=== PATIENT | female | born 1950 | race Caucasian/White ===

== ENCOUNTER 2017-03-26 22:37 | Observation (INO) | payer MEDICARE ==
[2017-03-26 23:22] LABS: ALKALINE PHOSPHATASE 116 U/L (38-126); ALT 54 U/L (9-52); AST 35 U/L (14-36); BILIRUBIN, DIRECT 0.1 mg/dL (0.0-0.4); BLOOD UREA NITROGEN 8 mg/dL (7-17); CALCIUM 7.6 mg/dL (8.4-10.2); CHLORIDE 98 mmol/L (98-107); EST GLOMERULAR FILTRATION RATE > 60 mL/min; GLUCOSE 97 mg/dL (70-100); POTASSIUM 3.1 mmol/L (3.5-5.1); SODIUM 134 mmol/L (137-145); TOTAL PROTEIN 5.7 g/dL (6.3-8.2)
[2017-03-26 23:31] LABS: HEMATOCRIT 38.2 % (36.0-48.0); HEMOGLOBIN 12.8 g/dL (12.0-16.0); MEAN CELL VOLUME 86.8 fL (80.0-100.0); MEAN CORPUS. HGB CONCENTRATION 33.5 g/dL (32.0-36.0); MEAN CORPUSCULAR HEMOGLOBIN 29.1 pg (29.0-35.0); MEAN PLATELET VOLUME 7.2 fL (7.4-10.4); PLATELET COUNT 201 X 10^3uL (130-440); RED CELL DISTRIBUTION WIDTH 18.9 % (11.5-14.5); WHITE BLOOD COUNT 13.7 X 10^3uL (3.9-10.7)
[2017-03-26 23:42] LABS: NEUTROPHIL % (Manual) 37 % (54.0-75.0)
[2017-03-26 23:43] LABS: BAND% (Manual) 43 % (0.0-1.0); LYMPHOCYTE % (Manual) 10 % (20.0-40.0); MONOCYTE % (Manual) 10 % (2.0-10.0); PLATELET ESTIMATE ADEQUATE
[2017-03-26] MEDS ORDERED: POLYETHYLENE GLYCOL 3350 17 GM POWD.PACK PO PRN (23:45)
[2017-03-26] MEDS ORDERED: ACETAMINOPHEN 325 MG TABLET PO PRN (23:45)
[2017-03-26] MEDS ORDERED: MAG-AL PLUS XS SUSP 30 ML UDC PO PRN (23:45)
[2017-03-26] MEDS ORDERED: POTASSIUM CHLORIDE/NS 1,000 ML IV SCH (23:45)
[2017-03-26] MEDS ORDERED: HOME MEDICATION LIST NEEDED 1 EA EACH MISC ONE (23:45)
[2017-03-26 23:47] LABS: ACANTHOCYTES PRESENT; TEAR DROP CELLS PRESENT
--- NOTE | 2017-03-27 01:15 | ER PHYSICIAN DOCUMENTATION ---
Physician Documentation [facility] Name:Ginger Gannon Age:66 yrs Sex:Female :1950 Arrival Date:03/26/2017 Time:22:37 Bed3 Private MD:Dina Guevara ED, Chris Disposition: 03/27/17 01:00 Admit ordered for Marlene Arreola. Preliminary diagnosis are Vomiting - Dehydration, Sepsis - : Rule out. - Bed requested for Medical/Surgical. - Condition is Fair. - Problem is an ongoing problem. - Symptoms have improved. 23 HR OBS Yes HPI: 03/26 23:00 This 66 yrs old Female presents to ER via Wheelchair with complaints of cd Nausea/Vomiting/ Dehydration. 23:00 The patient presents to the emergency department with nausea, that is moderate, with cd vomiting, that is occasional, 4 times since the onset of symptoms, described as clear fluid, without any complaints of abdominal pain, with Patient reports feeling dehydrated. She is currently receiving Chemotherapy for Stomach Cancer. Last week she had a shot of Neupogen. Her WBC was 1,600 last week. She denies fever or chills. Onset: The symptom(s)/episode began/occurred acutely, 4 day(s) ago. Possible causes: Chemotherapy. Associated signs and symptoms: Pertinent positives: anorexia, nausea, vomiting, Pertinent negatives: abdominal pain, diarrhea, dysuria, fever, GI bleeding. Severity of symptoms: At their worst the symptoms were moderate in the emergency department the symptoms are unchanged. The patient has experienced similar episodes in the past. Dr. Jairo Arreola here to evaluate the patient. Historical: - Allergies: No known drug Allergies; - PMHx: Stomach Cancer undergoing Chemotherapy; Neutropenia in the past; - Tetanus: < 10 years. - Ebola Screening: : Patient negative for fever greater than or equal to 101.5 degrees Fahrenheit, and additional compatible Ebola Virus Disease symptoms. Patient denies exposure to infectious person. Patient denies travel to an Ebola-affected area in the 21 days before illness onset. No symptoms or risks identified at this time. . - Immunization history: Flu Vaccine < 1 year. - Social history: Smoking status: Patient states was never smoker of tobacco. ROS: 23:05 ENT: Negative for injury, pain, epistaxis and discharge. cd Neck: Negative for injury, pain, stiffness and swelling. Cardiovascular: Negative for chest pain, palpitations, edema and pleuritic pain. Respiratory: Negative for shortness of breath, dyspnea on exertion, cough, sputum production, wheezing, hemoptysis and pleuritic chest pain. Back: Negative for injury, pain or muscle spasms. : Negative for injury, bleeding, discharge, dysuria, frequency, urgency and swelling. MS/Extremity: Negative for injury, deformity, edema, calf tenderness, pain or coldness. Skin: Negative for injury, rash, itching and discoloration. 23:05 Neuro: Negative for headache, weakness, numbness, tingling, and seizure. cd 23:05 Constitutional: Positive for malaise, poor PO intake, Negative for chills, fever. 23:05 Abdomen/GI: Positive for nausea, vomiting, anorexia, Negative for abdominal pain, diarrhea, abdominal distension, hematemesis, black/tarry stool, rectal bleeding. 23:05 All other systems are negative. Exam: 23:05 ENT: Nares patent. No nasal discharge, no septal abnormalities noted. Tympanic cd membranes are normal and external auditory canals are clear. Oropharynx with no redness, swelling, or masses, exudates, or evidence of obstruction, uvula midline. Mucous membranes dry Back: No spinal tenderness. No costovertebral tenderness. Full range of motion. MS/ Extremity: Pulses equal, no cyanosis. Neurovascular intact. Full, normal range of motion. 23:05 Neuro: Awake and alert, GCS 15, oriented to person, place, time, and situation. Cranial nerves II-XII grossly intact. Motor strength 5/5 in all extremities. Sensory grossly intact. Cerebellar exam normal. Normal gait. 23:05 Constitutional: The patient appears alert, awake, non-diaphoretic, non-toxic, well developed, frail, listless, pale. 23:05 Cardiovascular: Rate: tachycardic, actual rate is 116 bpm, Rhythm: regular, Pulses: no pulse deficits are appreciated, Heart sounds: normal. 23:05 Respiratory: Exam negative for acute changes. 23:05 Abdomen/GI: Inspection: abdomen appears normal, distension, is not seen, Bowel sounds: diminished, Palpation: soft, rebound tenderness, is not appreciated, voluntary guarding, is not appreciated, involuntary guarding, is not appreciated, no appreciated organomegaly. 23:05 Skin: Appearance: Color: pale. Vital Signs: 22:41 BP 132 / 88 RA Sitting (auto/reg); Pulse 116 LA; Resp 14 S; Temp 98.8(O); Pulse Ox 93% em3 on R/A; Weight 49.9 kg (R); Height 5 ft. 3 in. (160.02 cm) (R); Pain 0/10; 22:41 Body Mass Index 19.49 (49.90 kg, 160.02 cm) em3 [place] Coma Score: 23:05 Eye Response: spontaneous(4). Verbal Response: oriented(5). Motor Response: obeys cd commands(6). Total: 15. MDM: 23:05 Data interpreted: Pulse oximetry: on room air is 93 %. Interpretation: normal. cd 23:15 Patient medically screened. cd 23:15 Differential diagnosis: gastritis, pancreatitis, viral gastroenteritis, cd gastroenteritis, Dehydration, Neutropenic fever. 23:45 Data reviewed: vital signs, nurses notes, old medical records, lab test result(s), and cd as a result, I will admit patient, administer IV fluids, NS bolus, NS maintenence, Zofran and get a consult from Medicine for admission. 03/27 01:00 Counseling: I had a detailed discussion with the patient and/or guardian regarding: the cd historical points, exam findings, and any diagnostic results supporting the discharge/admit diagnosis, lab results, the need for further work-up and treatment in the hospital. Response to treatment: the patient's symptoms have mildly improved after treatment, and as a result, I will admit patient. Physician consultation: Marlene Arreola DO was called at 23:20, was contacted at 23:20, regarding admission, to the floor, consult, patient's condition, need to come to ED to see patient, need to evaluate the patient as soon as possible, and will see patient in ED, immediately. 03/26 23:30 Order name: BASIC METABOLIC PANEL; Complete Time: 00:50 EDMS 03/27 00:49 Interpretation: Normal Except: POTASSIUM 3.1; Hyperglycemia, Hypokalemia. 03/26 23:30 Order name: ALT; Complete Time: 00:50 EDMS 03/27 00:49 Interpretation: Normal. 03/26 23:30 Order name: ALBUMIN; Complete Time: 00:50 EDMS 03/27 00:49 Interpretation: Abnormal: ALBUMIN 3.0. 03/26 23:30 Order name: ALKALINE PHOSPHATASE; Complete Time: 00:50 EDMS 03/27 00:49 Interpretation: Normal. 03/26 23:30 Order name: AST; Complete Time: 00:50 EDMS 03/27 00:49 Interpretation: Normal. 03/26 23:30 Order name: BILIRUBIN, TOTAL; Complete Time: 00:50 EDMS 03/27 00:50 Interpretation: Normal. 03/26 23:30 Order name: BILIRUBIN, DIRECT; Complete Time: 00:50 EDMS 03/27 00:50 Interpretation: Normal. 03/26 23:30 Order name: TOTAL PROTEIN; Complete Time: 00:50 EDMS 03/27 00:50 Interpretation: Abnormal: TOTAL PROTEIN 5.7. 03/26 23:32 Order name: CBC W/ MANUAL DIFFERENTIAL; Complete Time: 00:50 EDMS 03/27 00:50 Interpretation: Abnormal: WHITE BLOOD COUNT 13.7; NEUTROPHIL % (Manual) 37; BAND% cd (Manual) 43. 03/27 06:04 Order name: UA W/ MICRO -CULTURE IF IND; Complete Time: 08:49 EDMS 03/27 08:48 Interpretation: Normal Except: URINE KETONE 50mg/dL (2+); Dehydration. 03/27 07:20 Order name: CBC W/ MANUAL DIFFERENTIAL; Complete Time: 08:49 EDMS 03/27 08:49 Interpretation: Abnormal: WHITE BLOOD COUNT 14.6; HEMOGLOBIN 11.4; HEMATOCRIT 33.4; cd NEUTROPHIL % (Manual) 39; BAND% (Manual) 41; Anemia, Elevated WBC with left shift. 03/27 07:22 Order name: BASIC METABOLIC PANEL; Complete Time: 08:49 EDMS 03/27 08:49 Interpretation: Normal Except: POTASSIUM 3.2; Hyperkalemia. 03/27 07:34 Order name: HEPATIC PANEL; Complete Time: 08:49 EDMS 03/27 08:49 Interpretation: Normal Except: ALBUMIN 3.1. 03/27 16:58 Order name: BASIC METABOLIC PANEL EDMD 03/28 06:23 Order name: BASIC METABOLIC PANEL [facility] 03/28 06:23 Order name: MAGNESIUM EDMD 03/28 06:23 Order name: HEPATIC PANEL [facility] 03/28 06:35 Order name: CBC W/ MANUAL DIFFERENTIAL EDMS 03/28 08:15 Order name: URINE CULTURE EDMS 03/28 08:18 Order name: BLOOD CULTURE EDMS 03/28 08:19 Order name: BLOOD CULTURE EDMS Dispensed Medications: 03/26 23:00 CANCELLED (Other Intervention Used): Zofran 2 mg IVP once over 2 mins bw2 23:01 Drug: NS 0.9% 1000 ml; Route: IV; Rate: bolus; Site: right subclavian; bw2 23:01 Drug: Zofran 4 mg; Route: IVP; Infused Over: 2 mins; Site: right subclavian; bw2 Signatures: Toney Merritt MD MD cd Wisely, Beth bw2
--- NOTE | 2017-03-27 01:15 | ER NURSING DOCUMENTATION ---
Nurse's Notes [facility] Name:Ginger Gannon Age:66 yrs Sex:Female :1950 Arrival Date:03/26/2017 Time:22:37 Bed3 Private MD:Dina Guevara Diagnosis:Vomiting - Dehydration;Sepsis-: Rule out Presentation: 03/26 22:41 Presenting complaint: Patient states: she is undergoing cancer treatment for stomach bw2 cancer. pt states she has been vomiting once every day for the last 4 days. pt states she has increased nausea. Transition of care: patient was not received from another setting of care. 22:41 Acuity: KARL 3 bw2 22:41 Method Of Arrival: Wheelchair bw2 Triage Assessment: 22:45 General: Appears emaciated, malnourished, slender, Behavior is appropriate for age. bw2 Pain: Denies pain. GI: Reports nausea, vomiting, since 4 days. Historical: - Allergies: No known drug Allergies; - PMHx: Stomach Cancer undergoing Chemotherapy; Neutropenia in the past; - Tetanus: < 10 years. - Ebola Screening: : Patient negative for fever greater than or equal to 101.5 degrees Fahrenheit, and additional compatible Ebola Virus Disease symptoms. Patient denies exposure to infectious person. Patient denies travel to an Ebola-affected area in the 21 days before illness onset. No symptoms or risks identified at this time. . - Immunization history: Flu Vaccine < 1 year. - Social history: Smoking status: Patient states was never smoker of tobacco. Screenin:46 Infectious Disease Risk None. Abuse screen: Denies threats or abuse. Nutritional bw2 screening: No deficits noted. Assessment: 22:46 See Triage Assessment done by same RN. GI: No deficits noted. Abdomen is flat, Reports bw2 nausea. Vital Signs: 22:41 BP 132 / 88 RA Sitting (auto/reg); Pulse 116 LA; Resp 14 S; Temp 98.8(O); Pulse Ox 93% em3 on R/A; Weight 49.9 kg (R); Height 5 ft. 3 in. (160.02 cm) (R); Pain 0/10; 22:41 Body Mass Index 19.49 (49.90 kg, 160.02 cm) em3 Daisy Coma Score: 23:05 Eye Response: spontaneous(4). Verbal Response: oriented(5). Motor Response: obeys cd commands(6). Total: 15. ED Course: 22:41 Patient arrived in ED. em3 22:41 Priscilla Leiva is Primary Nurse. bw2 22:41 Dina Guevara MD is Private Physician. em3 22:42 Valuables Remains with patient Patient has correct armband on for positive em3 identification. Placed in gown. Bed in low position. Call light in reach. Side rails up X 1. 22:44 Triage completed. bw2 22:58 Accessed Port-a-Cath using accessed w/ # 20 Pop needle, sterile technique, per [facility] protocol. Clean & dry. Flushes easily. 23:15 Toney Merritt MD is Attending Physician. cd 03/27 00:59 Marlene Arreola DO is Admitting Physician. cd Administered Medications: 03/26 23:00 CANCELLED (Other Intervention Used): Zofran 2 mg IVP once over 2 mins bw2 23:01 Drug: NS 0.9% 1000 ml; Route: IV; Rate: bolus; Site: right subclavian; bw2 23:01 Drug: Zofran 4 mg; Route: IVP; Infused Over: 2 mins; Site: right subclavian; bw2 Outcome: 03/27 01:00 Decision to Admit by Provider. cd 01:12 Admitted to Med/surg accompanied by nurse. bw2 01:12 Condition: good 01:12 Report given to Kb BARROS. Kb notified that a UA is needed, this nurse unable to obtain at this time 01:12 Discharge Assessment: Patient awake, alert and oriented x 3. No cognitive and/or functional deficits noted. Patient verbalized understanding of disposition instructions. 01:12 Instructed on need to admit 01:15 Patient left the ED. bw2 Signatures: Duane Samuels RN RN Toney Merritt MD MD cd Norman, David dnn Meiklejohn, Eric em3 Priscilla Leiva bw2
[2017-03-27] MEDS ORDERED: POTASSIUM CHLORIDE/NS 20 MEQ/1,000 ML BAG IV ONE (01:51)
[2017-03-27] MEDS ORDERED: POTASSIUM CHLORIDE 20 MEQ/100 ML PIGGYBACK IV ONE ×4 (01:51→17:07)
[2017-03-27] MEDS ORDERED: NORMAL SALINE 100 ML IV ONE (01:53)
[2017-03-27] MEDS: POTASSIUM CHLORIDE/NS 20 MEQ/1,000 ML BAG IV SCH ×2 (01:59→20:43)
[2017-03-27 06:03] LABS: URINE APPEARANCE CLEAR; URINE BACTERIA NONE SEEN (<10/hpf); URINE BILIRUBIN NEGATIVE (NEGATIVE); URINE BLOOD NEGATIVE (NEGATIVE); URINE COLOR YELLOW; URINE GLUCOSE NORMAL (NEGATIVE); URINE KETONE 50mg/dL (2+) (NEGATIVE); URINE LEUKOCYTE ESTERASE NEGATIVE (NEGATIVE); URINE MUCUS NONE SEEN (Up to 25%); URINE NITRITE NEGATIVE (NEGATIVE); URINE PH 7.5 (5-7); URINE PROTEIN 10mg/dL (trace) (NEG - TRACE); URINE RBC NONE SEEN (0-5/hpf); URINE SPECIFIC GRAVITY 1.015 (0.001-1.035); URINE SQUAMOUS EPITHELIAL CELL NONE SEEN (<= 15/hpf); URINE UROBILINOGEN 0.2mg/dL (Normal) (NEG-1mg/dL); URINE WBC NONE SEEN (0-4/hpf)
[2017-03-27] MEDS ORDERED: PANTOPRAZOLE 40 MG TABLET PO SCH (06:30)
[2017-03-27 07:12] LABS: BLOOD UREA NITROGEN 6 mg/dL (7-17); CHLORIDE 105 mmol/L (98-107); EST GLOMERULAR FILTRATION RATE > 60 mL/min; GLUCOSE 79 mg/dL (70-100); POTASSIUM 3.2 mmol/L (3.5-5.1); SODIUM 136 mmol/L (137-145)
[2017-03-27 07:19] LABS: HEMATOCRIT 33.4 % (36.0-48.0); HEMOGLOBIN 11.4 g/dL (12.0-16.0); MEAN CELL VOLUME 87.8 fL (80.0-100.0); MEAN CORPUSCULAR HEMOGLOBIN 29.9 pg (29.0-35.0); MEAN PLATELET VOLUME 7.4 fL (7.4-10.4); PLATELET COUNT 177 X 10^3uL (130-440); RED BLOOD COUNT 3.81 X 10^6uL (4.20-6.10); RED CELL DISTRIBUTION WIDTH 19.1 % (11.5-14.5); WHITE BLOOD COUNT 14.6 X 10^3uL (3.9-10.7)
[2017-03-27 07:20] LABS: BAND% (Manual) 41 % (0.0-1.0); LYMPHOCYTE % (Manual) 10 % (20.0-40.0); NEUTROPHIL % (Manual) 39 % (54.0-75.0); PLATELET ESTIMATE ADEQUATE
[2017-03-27 07:21] LABS: MONOCYTE % (Manual) 10 % (2.0-10.0)
[2017-03-27 07:22] LABS: CALCIUM 6.7 mg/dL (8.4-10.2)
[2017-03-27 07:33] LABS: ALBUMIN 3.1 g/dL (3.5-5.0); BILIRUBIN, TOTAL 1.1 mg/dL (0.2-1.3); TOTAL PROTEIN 6.2 g/dL (6.3-8.2)
--- NOTE | 2017-03-27 08:14 | HISTORY & PHYSICAL ---
DATE OF ADMISSION: 03/27/17 ATTENDING PHYSICIAN: Marlene Arreola MD PRIMARY CARE PHYSICIAN: Linnette Guevara MD ONCOLOGIST: Lamar Garcia MD ([employer]) CHIEF COMPLAINT: Nausea and weakness. HISTORY OF PRESENT ILLNESS: The patient is a 66-year-old female who is currently undergoing treatment for metastatic breast cancer. She recently was diagnosed with metastasis to the stomach and weeks ago she had surgery in January. She had a follow up Oncology visit on March 07 and was doing chemotherapy. She has also had a recent consultation at [facility] about 3 weeks ago regarding her cancer treatment and plan of care. As the Emergency Room was very busy, I was asked to evaluate patient in the Emergency Room and consultation and during that consultation, I recommended that she actually come in for further observation. Patient states that she did have chemotherapy on Monday, and since then she has felt more down than typical. On Monday, she came in for her Neupogen shot and had been overall stable. Today, however, her symptoms just continued to progress. She has had increased anxiety. She has had overall fatigue and weakness, sensation that something is wrong and she has had some vomiting. notes that she does typically have about 1 episode a vomiting daily, which she has had since she received chemotherapy just recently. Patient denies any fever. She is slightly chilled. She has mild GI upset and nausea but no diarrhea. She denies any cough or shortness of breath. She denies any urinary symptoms. She denies any rashes or skin abnormalities. PAST MEDICAL HISTORY 1. Breast cancer of upper outer quadrant and left breast with metastatic disease , bone, liver and gastric outlet obstruction. 2. Malnutrition 3. Cyclic vomiting syndrome. 4. Hypokalemia. 5. Hypomagnesia. 6. Gastroesophageal reflux disease. 7. Hypothyroidism. 8. Post polio. PAST SURGICAL HISTORY 1. Status post gastrojejunostomy 02/05/17. 2. Status post RK left eye. 3. Status post open reduction, internal fixation left wrist. 4. Status post multiple lower extremity procedures secondary to polio. FAMILY HISTORY: Mother with history of congestive heart failure, hypertension, diabetes, at age 72. Father at 92 related to congestive heart failure. Brother at age 21 related to lymphoma. SOCIAL HISTORY: Patient is . Her Mckinley was here with her reta. They are originally from [place] and currently running one of the lodges here in [facility]. MEDICATIONS Synthroid, which she alternates with 15 mcg and 75 mcg every other day. Calcium 3 times a day. Zofran and Prochlorperazine as needed. Omeprazole every morning. ALLERGIES: No known drug allergies. REVIEW OF SYSTEMS GENERAL: Patient is fatigued and weak. She denies any fever. No chills. HEENT: No sore throat. No visual changes. No runny nose. RESPIRATORY: Denies cough and shortness of breath. CARDIOVASCULAR: No palpitations. No chest pain. ABDOMEN: Positive for nausea and vomiting. Positive for some mild generalized abdominal discomfort. No diarrhea. EXTREMITIES: No change in chronic edema and abnormalities. PSYCHIATRIC: Patient admits that she has been slightly more anxious. PHYSICAL EXAMINATION VITAL SIGNS: Initially patient with a temperature of 98.8, blood pressure 132/88 , pulse 116, respiratory rate 14 and she was 93% on room air. Her heart rate significantly improved after getting a liter of fluid and resting in the bed. GENERAL: Patient appears slightly anxious and pale but in no acute distress. HEENT: Normocephalic, atraumatic. Mildly dry mucous membranes. She is thin appearing. Oropharynx is clear otherwise. CARDIOVASCULAR: Normal S1, S2. RESPIRATORY: Clear to auscultation bilaterally. No increased respiratory distress. ABDOMEN: Soft, nondistended. Mildly hyperactive bowel sounds. She does have surgical scar on anterior abdomen that is well healed and approximated. EXTREMITIES: Surgical changes left lower extremity related to polio. SKIN: No rashes. She does have port on right anterior chest. NEURO: Patient is alert and oriented x3. Cranial nerves are grossly intact. LABORATORY: Patient has a CBC which showed an elevated white count at 13.7, hemoglobin 12.8, hematocrit 38.2, platelets 201. BMP showed sodium 134, potassium 3.1, chloride 98, bicarb 24, BUN 8, creatinine 0.7 and glucose of 98. Her calcium is low at 7.6 but patient does have chronic hypocalcemia. Her AST is 35, ALT 54, alkaline phosphatase 116. Total protein 5.7, albumin is 3. I did order a urine and culture and blood cultures as well as chest x-ray which are all pending. ASSESSMENT/PLAN: This is a 66-year-old female who is currently undergoing chemotherapy related to metastatic breast cancer who is presenting with progressive fatigue, weakness and increased vomiting causing dehydration. 1. Dehydration. Patient has been having minimal oral intake since her last chemotherapy. was planning on bringing her in tomorrow for some IV fluids but due to her progressive symptoms he brought her in tonight for monitoring. She was noted to have her baseline lab abnormalities, so she will try to replete with appropriate hydration, but she is also noted to have a new elevated white blood count. Will continue IV fluids through the evening and reassess her labs in the morning. 2. Leukocytosis. Again, patient's white blood count is 13.7. I do have a lab from 4 days ago which shows her white count was 1.8 with low neutrophils at that time of 44. The CBC that was done in the Emergency Room did not include a differential, but in between these 2 labs, patient did get a Neutrapen injection. I am not sure if this was an anticipated bump related to that injection or if we need to be monitoring or if it is more elevated than expected. At this time, I do not see a focal finding for infection, but do feel patient warrants further observation in the hospital. I have asked for blood cultures, urine culture and chest x-ray to further evaluate for potential source of infection. I am holding off on any prophylactic antibiotics. If she appears well with no significant vital signs abnormalities and no fever. If she does spike a fever, we will empirically start broad spectrum antibiotics. I do anticipate will need to contact her oncologist tomorrow to discuss her labs and see if any further treatment or evaluation is recommended. 3. Metastatic breast cancer. Again, patient has just recently gone through some stomach surgery, and has started back on chemotherapy in the middle of treatment at this time. Will closely monitor and contact Oncology in the morning. 4. Electrolyte abnormalities. Patient does have chronic hypokalemia, hypocalcemia which is slightly worsening today probably related to underlying dehydration, will attempt to replete with fluids. There have been notes that patient does not tolerate oral potassium so will give through IV. Will repeat in the morning. 5. Hypothyroid. Will need to order home medications in the morning. 6. Nausea and vomiting. Patient has only had minimal vomiting, but her nausea has made her have minimal p.o. intake. Will continue some antiemetics and IV fluids. I did order a regular diet, but patient may chose to have more bland and clear if desired. 7. Disposition. Again this is an observation admit while we monitor for any potential underlying infection and further discuss the typical response with Neupogen injection. Will transition care to her primary care physician Dr. Guevara in the morning and will ask her to further discuss with her Oncologist Dr. Garcia in [facility]. Copies to: Dr. Guevara [facility]
[2017-03-27] MEDS ORDERED: CALCIUM GLUCONATE IV ONE (09:00)
[2017-03-27] MEDS ORDERED: NORMAL SALINE IV ONE (09:00)
[2017-03-27] MEDS ORDERED: POTASSIUM CHLORIDE 20 MEQ/100 ML PIGGYBACK IV SCH (10:00)
--- NOTE | 2017-03-27 10:14 | PROGRESS NOTE: IM SOAP ---
IM: PN Subjective General: fatigue, anxiety (Significant anxiety last night; improved this morning. ), other (Weight loss), no confusion, no good appetite, no pain, no diaphoresis, no fever, no chills HEENT: no sore throat Cardiovascular: dizziness (Occasional.), no chest pain, no chest pressure, no palpitations Respiratory: no cough, no sputum, no SOB Gastrointestinal: nausea, vomiting (But no emesis since admit), constipation ( No BM x 6 days.), flatus, no abdominal pain, no diarrhea Genitourinary: no dysuria, no flank pain Musculoskeletal: weakness (Generalized weakness. ), no pain, no swelling Integumentary: no wound Neurological: limb weakness (Generalized weakness.), other (Anxiety about her future.) IM: PN Objective Exam - I&O/Vital Signs I&O: Intake & Output 03/26/17 03/27/17 03/27/17 21:59 05:59 13:59 Intake Total 531 Output Total 600 Balance -69 Weight 48.308 kg 51.936 kg Intake: IV 411 Right Subclavian 411 Oral 120 Output: Urine 600 Other: Urine Appearance Clear Urine Color Yellow Voiding Method Indwelling Catheter Vital Signs: Last Vital Signs Temp 36.8 C 03/27/17 07:00 Pulse 106 H 03/27/17 07:00 Resp 18 03/27/17 07:00 BP 121/78 03/27/17 07:00 Pulse Ox 92 03/27/17 07:00 Oxygen Delivery Method Room Air - Constitutional General appearance: Present: cooperative, thin (Cachectic; significant weight loss. Chronically ill-appearing.). Absent: acute distress - Head Head exam: Present: atraumatic, normal inspection, normocephalic - Eye Eye exam: Present: EOMI, PERRL - ENT ENT exam: Present: mucous membranes moist - Respiratory Respiratory exam: Present: clear. Absent: accessory muscle use, rales, respiratory distress - Cardiovascular Cardiovascular exam: Present: tachycardia. Absent: gallop, rubs, systolic murmur - GI/Abdominal GI/Abdominal exam: Present: hypoactive bowel sounds, soft, other (Incision well- healed.). Absent: distended, guarding, mass, rebound, tenderness - Extremities Exam Extremities exam: Absent: calf tenderness, Kayce's Sign, edema, tenderness - Back Exam Back exam: Absent: CVA tenderness (L), CVA tenderness (R) - Neurological Exam Neurological exam: Present: alert, oriented X3 - Psychiatric Psychiatric exam: Present: anxious. Absent: depressed - Allied Health Notes Allied health notes reviewed: nursing - Lab Labs: Laboratory Last Values WBC 14.6 X 10^3uL (3.9-10.7) H 03/27/17 06:15 RBC 3.81 X 10^6uL (4.20-6.10) L 03/27/17 06:15 Hgb 11.4 g/dL (12.0-16.0) L 03/27/17 06:15 Hct 33.4 % (36.0-48.0) L 03/27/17 06:15 MCV 87.8 fL (80.0-100.0) 03/27/17 06:15 MCH 29.9 pg (29.0-35.0) 03/27/17 06:15 MCHC 34.0 g/dL (32.0-36.0) 03/27/17 06:15 RDW 19.1 % (11.5-14.5) H 03/27/17 06:15 Plt Count 177 X 10^3uL (130-440) 03/27/17 06:15 MPV 7.4 fL (7.4-10.4) 03/27/17 06:15 Total Counted 100 03/27/17 06:15 Neutrophils % Cancelled 03/26/17 22:50 Neutrophils % (Manual) 39 % (54.0-75.0) L 03/27/17 06:15 Band Neuts % (Manual) 41 % (0.0-1.0) H 03/27/17 06:15 Lymphocytes % Cancelled 03/26/17 22:50 Lymphocytes % (Manual) 10 % (20.0-40.0) L 03/27/17 06:15 Monocytes % (Manual) 10 % (2.0-10.0) 03/27/17 06:15 Eosinophils % Cancelled 03/26/17 22:50 Basophils % Cancelled 03/26/17 22:50 Neutrophils # Cancelled 03/26/17 22:50 Lymphocytes # Cancelled 03/26/17 22:50 Monocytes Cancelled 03/26/17 22:50 Monocytes # Cancelled 03/26/17 22:50 Eosinophils # Cancelled 03/26/17 22:50 Basophils # Cancelled 03/26/17 22:50 Platelet Estimate Adequate 03/27/17 06:15 Anisocytosis 20-39% of cells 03/26/17 22:50 Macrocytosis 10-19% of cells 03/26/17 22:50 Tear Drop Cells Present 03/26/17 22:50 Acanthocytes (Spur) Present 03/26/17 22:50 Sodium 136 mmol/L (137-145) L 03/27/17 06:15 Potassium 3.2 mmol/L (3.5-5.1) L 03/27/17 06:15 Chloride 105 mmol/L (98-107) 03/27/17 06:15 Carbon Dioxide 22 mmol/L (22-30) 03/27/17 06:15 BUN 6 mg/dL (7-17) L 03/27/17 06:15 Creatinine 0.6 mg/dL (0.5-1.0) 03/27/17 06:15 GFR Calculation > 60 mL/min 03/27/17 06:15 Glucose 79 mg/dL (70-100) 03/27/17 06:15 Calcium 6.7 mg/dL (8.4-10.2) L* 03/27/17 06:15 Total Bilirubin 1.1 mg/dL (0.2-1.3) 03/27/17 06:20 Direct Bilirubin 0.0 mg/dL (0.0-0.4) 03/27/17 06:20 AST 28 U/L (14-36) 03/27/17 06:20 ALT 26 U/L (9-52) 03/27/17 06:20 Alkaline Phosphatase 48 U/L (38-126) 03/27/17 06:20 Total Protein 6.2 g/dL (6.3-8.2) L 03/27/17 06:20 Albumin 3.1 g/dL (3.5-5.0) L 03/27/17 06:20 Urine Color Yellow 03/27/17 05:38 Urine Appearance Clear 03/27/17 05:38 Urine pH 7.5 (5-7) 03/27/17 05:38 Ur Specific [place] 1.015 (0.001-1.035) 03/27/17 05:38 Urine Protein 10mg/dl (trace) (NEG - TRACE) 03/27/17 05:38 Urine Ketones 50mg/dl (2+) (NEGATIVE) A 03/27/17 05:38 Urine Blood Negative (NEGATIVE) 03/27/17 05:38 Urine Nitrate Negative (NEGATIVE) 03/27/17 05:38 Urine Bilirubin Negative (NEGATIVE) 03/27/17 05:38 Urine Urobilinogen 0.2mg/dl (normal) (NEG-1mg/dL) 03/27/17 05:38 Ur Leukocyte Esterase Negative (NEGATIVE) 03/27/17 05:38 Urine RBC None seen (0-5/hpf) 03/27/17 05:38 Urine WBC None seen (0-4/hpf) 03/27/17 05:38 Ur Squamous Epith Cells None seen (<= 15/hpf) 03/27/17 05:38 Urine Bacteria None seen (<10/hpf) 03/27/17 05:38 Urine Mucus None seen (Up to 25%) 03/27/17 05:38 Urine Glucose Normal (NEGATIVE) 03/27/17 05:38 Assessment and Plan - Date of Encounter Date of Encounter: 03/27/17 (1) Nausea & vomiting Status: Acute Assessment and plan: Continue IVF. Anti-emetics. Nutrition consult. Current Visit: Yes (2) Hypokalemia Status: Chronic Assessment and plan: Replete K. Recheck labs this afternoon. Current Visit: Yes (3) Hypocalcemia Status: Chronic Assessment and plan: Corrects to 7.42. Give calcium gluconate. Appreciate pharmacy input. Recheck BMP this afternoon. Current Visit: Yes (4) Weight loss Status: Acute Assessment and plan: Metastatic CA. Nutrition consult. Current Visit: Yes (5) Malnutrition Status: Chronic Assessment and plan: As above. May need to consider parenteral feeding in the future. Nutrition consult. Current Visit: Yes (6) Breast cancer Status: Chronic Assessment and plan: I have spoken with covering oncologist, Dr. Gaona. No evidence of infection. BCx and UCx pending. WBC, H/H, and plts stable. Next chemotherapy on 04/06/17. She will see oncologist, Dr. Dominguez on 04/06/17. Anticipate discharge later today or tomorrow if electrolytes stabilize. Current Visit: Yes - Time Spent With Patient Total time spent with greater than 50% in coordination of care (as documented) at patient's floor/unit and/or counseling patient: Greater than 35 minutes Quality Questions - VTE Prophylaxis Assessment VTE Present on Admission?: No Patient at risk for venous thromboembolism?: Yes VTE Risk Level: High Risk Pharmaceutical VTE prophylaxis contraindication reason: N/A- VTE prophylaxsis ordered Mechanical VTE prophylaxis contraindication reason: N/A- VTE prophylaxsis ordered
[2017-03-27] MEDS: POTASSIUM CHLORIDE 20 MEQ/100 ML PIGGYBACK IV SCH ×2 (11:10→16:35)
[2017-03-27] MEDS: clonazePAM 0.5 MG TABLET PO SCH ×3 (12:18→20:41)
[2017-03-27] MEDS: CITALOPRAM HYDROBROMIDE 10 MG TABLET PO SCH (12:18)
[2017-03-27] MEDS: ENOXAPARIN SODIUM 40 MG/0.4 ML SYR SUBCUT SCH (12:19)
[2017-03-27 16:55] LABS: BLOOD UREA NITROGEN 5 mg/dL (7-17); CHLORIDE 105 mmol/L (98-107); EST GLOMERULAR FILTRATION RATE > 60 mL/min; GLUCOSE 81 mg/dL (70-100); POTASSIUM 3.6 mmol/L (3.5-5.1); SODIUM 135 mmol/L (137-145)
[2017-03-27 16:57] LABS: CALCIUM 7.1 mg/dL (8.4-10.2)
[2017-03-27] MEDS ORDERED: POTASSIUM CHLORIDE 0 ML IV ONE (17:06)
[2017-03-27] MEDS: ONDANSETRON HCL 4 MG/2 ML VIAL IV PRN (18:40)
[2017-03-27] MEDS ORDERED: NORMAL SALINE IV SCH (18:48)
[2017-03-27] MEDS ORDERED: CALCIUM GLUCONATE IV SCH (18:48)
[2017-03-27] MEDS: DOCUSATE SODIUM 100 MG CAPSULE PO SCH (20:38)
[2017-03-27] MEDS ORDERED: CALCIUM/VIT D 600 MG/400 IU 1 TAB TABLET PO ONE (20:56)
[2017-03-27] MEDS: PANTOPRAZOLE 40 MG TABLET PO SCH (21:00)
[2017-03-27] MEDS ORDERED: NON-FORMULARY MEDICATION (Omeprazole [Omeprazole] 20 MG) PO SCH (21:00)
[2017-03-27] MEDS ORDERED: NORMAL SALINE MINI-BAG+ 100 ML IV ONE (22:19)
[2017-03-27 23:50] VITALS: RESP 16
[2017-03-28 06:07] LABS: ALBUMIN 2.4 g/dL (3.5-5.0); ALKALINE PHOSPHATASE 101 U/L (38-126); ALT 55 U/L (9-52); AST 35 U/L (14-36); BILIRUBIN, DIRECT 0.1 mg/dL (0.0-0.4); BILIRUBIN, TOTAL 0.6 mg/dL (0.2-1.3); BLOOD UREA NITROGEN 5 mg/dL (7-17); CHLORIDE 107 mmol/L (98-107); EST GLOMERULAR FILTRATION RATE > 60 mL/min; GLUCOSE 79 mg/dL (70-100); MAGNESIUM 1.7 mg/dL (1.6-2.3); SODIUM 137 mmol/L (137-145); TOTAL PROTEIN 4.8 g/dL (6.3-8.2)
[2017-03-28 06:23] LABS: CALCIUM 7.3 mg/dL (8.4-10.2)
[2017-03-28] MEDS ORDERED: LEVOTHYROXINE 50 MCG TABLET PO SCH ×2 (06:30→09:00)
[2017-03-28 06:34] LABS: HEMATOCRIT 34.1 % (36.0-48.0); HEMOGLOBIN 11.6 g/dL (12.0-16.0); MEAN CELL VOLUME 87.9 fL (80.0-100.0); MEAN CORPUSCULAR HEMOGLOBIN 29.9 pg (29.0-35.0); MEAN PLATELET VOLUME 7.3 fL (7.4-10.4); PLATELET COUNT 168 X 10^3uL (130-440); RED BLOOD COUNT 3.88 X 10^6uL (4.20-6.10); RED CELL DISTRIBUTION WIDTH 20.3 % (11.5-14.5); WHITE BLOOD COUNT 21.4 X 10^3uL (3.9-10.7)
[2017-03-28 06:35] LABS: BAND% (Manual) 32 % (0.0-1.0); LYMPHOCYTE % (Manual) 8 % (20.0-40.0); MONOCYTE % (Manual) 8 % (2.0-10.0); NEUTROPHIL % (Manual) 52 % (54.0-75.0)
[2017-03-28 06:36] LABS: BURR CELLS PRESENT; PLATELET ESTIMATE ADEQUATE; TEAR DROP CELLS PRESENT
--- NOTE | 2017-03-28 08:39 | DC SUMMARY: Newborn Note ---
Discharge Summary: Surg/OB Provider: Date of Admission: 03/27/17 Admitting Provider: ORALIA ZHENG Attending Provider: NABIL HAQ MD Discharging Provider: NABIL HAQ MD Primary Care Provider: Discharge Date: 03/28/17 Consults: 03/27/17 10:12 Nutrition/Dietary Consult [CONS] Routine Reason: Metastatic CA; weight loss; malnutrition. - Diagnosis (1) Nausea & vomiting Status: Acute Qualifiers: Vomiting Intractability: non-intractable (2) Hypokalemia Status: Chronic (3) Hypocalcemia Status: Chronic (4) Weight loss Status: Acute (5) Malnutrition Status: Chronic (6) Breast cancer Status: Chronic Qualifiers: Breast location: upper outer quadrant of breast Estrogen receptor status: positive Patient sex: female Laterality: left Qualified Code(s): C50.412 - Malignant neoplasm of upper-outer quadrant of left female breast; Z17.0 - Estrogen receptor positive status [ER+] (7) Hypoxemia Status: Acute (8) Lymphedema Status: Chronic Hospital Course: Ms. DALTON is a 66 year old female Discharge Disposition: HOME, SELF-CARE [place]: Discharge Phys. Exam - I&O/ Vital Signs I&O: Intake & Output 03/27/17 03/28/17 03/28/17 21:59 05:59 13:59 Intake Total 360 1041 Output Total 650 0 Balance -290 1041 Weight 54.658 kg Intake: IV 916 Right Subclavian 916 Oral 360 125 Output: Urine 650 0 Other: Urine Appearance Clear Urine Color Yellow Voiding Method Toilet Last Vital Signs Temp 36.8 C 03/28/17 06:25 Pulse 90 03/28/17 06:25 Resp 16 03/28/17 06:25 BP 130/82 03/28/17 06:25 Pulse Ox 98 03/28/17 06:25 Oxygen Flow Rate 2 Oxygen Delivery Method Nasal Cannula Weights Weight 54.658 kg - Medications Medication administrations: Medication Administrations Citalopram Hydrobromide (Celexa) 10 mg PO DAILY [facility] Last Admin: 03/27/17 12:18 Dose: 10 mg Clonazepam (Klonopin) 0.25 mg PO TID [facility] Last Admin: 03/27/17 20:41 Dose: 0.25 mg Admin: 03/27/17 16:56 Dose: 0.25 mg Admin: 03/27/17 12:18 Dose: 0.25 mg Docusate Sodium (Colace) 100 mg PO DAILY [facility] Last Admin: 03/27/17 20:38 Dose: 100 mg Enoxaparin Sodium (Lovenox) 40 mg SUBCUT DAILY [facility] PRN Reason: Protocol Last Admin: 03/27/17 12:19 Dose: 40 mg Potassium Chloride/Sodium Chloride (Kcl 20 Meq In Ns 1l) 20 meq in 1,000 mls @ 100 mls/hr IV CONT [facility] Last Admin: 03/27/17 20:43 Dose: 100 mls/hr Admin: 03/27/17 01:59 Dose: 100 mls/hr Levothyroxine Sodium (Synthroid) 50 mcg PO Q48H [facility] Last Admin: 03/28/17 06:02 Dose: 50 mcg Non-Formulary Medication (Calcium Carbonate/Vitamin D3 [Calcium 600 + Vit D 400 Tablet]) 1 each PO TID [facility] Last Admin: 03/27/17 20:42 Dose: 1 each Ondansetron HCl (Zofran) 4 mg IV Q6H PRN PRN Reason: Nausea/vomiting, use 1st Last Admin: 03/27/17 18:40 Dose: 4 mg Pantoprazole Sodium (Protonix) 20 mg PO BID [facility] Last Admin: 03/27/17 21:00 Dose: 20 mg Promethazine HCl (Phenergan Inj) 12.5 mg IV Q6H PRN PRN Reason: Nausea/vomiting, use 2nd Last Admin: 03/27/17 20:43 Dose: 12.5 mg Admin: 03/27/17 01:57 Dose: 12.5 mg Discontinued Medications Calcium Carbonate (Calcium 600/Vitamin D 400) Confirm Administered Dose 1 tab PO .STK-MED ONE Stop: 03/27/17 20:57 Last Admin: 03/27/17 21:59 Dose: Potassium Chloride (Kcl 20 Meq 100 Ml) Confirm Administered Dose 20 meq in 100 mls @ ud IV .STK-MED ONE Stop: 03/27/17 01:52 Last Admin: 03/27/17 09:32 Dose: Potassium Chloride/Sodium Chloride (Kcl 20 Meq In Ns 1l) Confirm Administered Dose 20 meq in 1,000 mls @ ud IV .STK-MED ONE Stop: 03/27/17 01:52 Last Admin: 03/27/17 09:32 Dose: Sodium Chloride (Sodium Chloride 0.9% 100 Ml) Confirm Administered Dose 100 mls @ ud IV .STK-MED ONE Stop: 03/27/17 01:54 Last Admin: 03/27/17 01:57 Dose: 100 ml Calcium Gluconate 1,000 mg/ (Sodium Chloride) 110 mls @ 110 mls/hr IV ONCE ONE Stop: 03/27/17 09:59 Last Admin: 03/27/17 09:31 Dose: 110 mls/hr Potassium Chloride (Kcl 10 Meq 100 Ml) Confirm Administered Dose 100 mls @ ud IV .STK-MED ONE Stop: 03/27/17 17:07 Last Admin: 03/27/17 17:03 Dose: Potassium Chloride (Kcl 20 Meq 100 Ml) Confirm Administered Dose 20 meq in 100 mls @ ud IV .STK-MED ONE Stop: 03/27/17 17:08 Last Admin: 03/27/17 17:04 Dose: Calcium Gluconate 1,000 mg/ (Sodium Chloride) 110 mls @ 100 mls/hr IV ONCE JILL Stop: 03/27/17 23:00 Last Admin: 03/27/17 22:09 Dose: 100 mls/hr Miscellaneous Information () 1 ea MISC ONCE ONE Stop: 03/26/17 23:46 Last Admin: 03/27/17 09:32 Dose: Pantoprazole Sodium (Protonix) 40 mg PO BEFORE BREAKFAST JILL Last Admin: 03/27/17 05:59 Dose: 40 mg Potassium Chloride (Kcl 20 Meq 100 Ml) 20 meq IV Q2H JILL Stop: 03/27/17 12:01 Last Admin: 03/27/17 16:35 Dose: Admin: 03/27/17 11:10 Dose: 20 meq Potassium Chloride (Kcl 20 Meq 100 Ml) 20 meq IV ONCE@1500 ONE Stop: 03/27/17 15:01 Last Admin: 03/27/17 16:58 Dose: 20 meq Promethazine HCl (Phenergan Inj) Confirm Administered Dose 25 mg .ROUTE .STK- MED ONE Stop: 03/27/17 01:54 Last Admin: 03/27/17 01:59 Dose: Discharge Summary Data - Medication History Medication History: Home Medications Calcium Carbonate/Vitamin D3 [Calcium 600 + Vit D 400 Tablet] 1 each PO TID Denosumab [Xgeva*] 120 mg SUBCUT [id number] 03/27/17 Docusate Sodium [Colace*] 100 mg PO DAILY 03/27/17 Levothyroxine [Synthroid*] 50 mcg PO EVERY OTHER DAY 03/27/17 Levothyroxine [Synthroid*] 75 mcg PO EVERY OTHER DAY 03/27/17 Omeprazole 20 mg PO BID 03/27/17 Ondansetron Odt [Zofran Odt*] 8 mg PO Q8H 03/27/17 Inpatient Medications 03/27/17 01:23 proMETHazine HCL [Phenergan Inj] 12.5 mg IV Q6H PRN 03/27/17 02:00 Potassium Chloride/Ns [KCl 20 Meq in Ns 1L] 20 meq in 1,000 ml IV CONT 03/27/17 10:15 Citalopram Hydrobromide [CeleXA] 10 mg PO DAILY clonazePAM [KlonoPIN] 0.25 mg PO TID 03/27/17 10:30 Enoxaparin Sodium [Lovenox] 40 mg SUBCUT DAILY 03/27/17 20:30 Docusate Sodium [Colace] 100 mg PO DAILY 03/27/17 21:00 Calcium Carbonate/Vitamin D3 [Calcium 600 + Vit D 400 Tablet] 1 each PO TID Pantoprazole [Protonix] 20 mg PO BID 03/28/17 06:30 Levothyroxine [Synthroid] 50 mcg PO Q48H 03/29/17 06:30 Levothyroxine [Synthroid] 75 mcg PO Q48H Procedures and tests throughout hospitalization: Completed Lab Orders 03/27/17 06:20 HEPATIC PANEL [CHEM] Stat 03/27/17 16:40 BMP [BASIC METABOLIC PANEL] [CHEM] Stat 03/28/17 05:20 BMP [BASIC METABOLIC PANEL] [CHEM] AMDRAW CBC W/ MANUAL DIFFERENTIAL [HEM] Routine HEPATIC PANEL [CHEM] Routine MAGNESIUM [CHEM] Routine Pending Orders 03/27/17 01:23 proMETHazine HCL [Phenergan Inj] 12.5 mg IV Q6H PRN 03/27/17 02:00 Potassium Chloride/Ns [KCl 20 Meq in Ns 1L] 20 meq in 1,000 ml IV CONT 03/27/17 07:19 URINE CULTURE [RM] Urgent urinalysis [UA W/ MICRO -CULTURE IF IND] [URINE] Urgent 03/27/17 08:00 BLOOD CULTURE [BC] Stat 03/27/17 10:15 Citalopram Hydrobromide [CeleXA] 10 mg PO DAILY clonazePAM [KlonoPIN] 0.25 mg PO TID 03/27/17 10:30 Enoxaparin Sodium [Lovenox] 40 mg SUBCUT DAILY 03/27/17 15:00 EKG ONCE 03/27/17 20:30 Docusate Sodium [Colace] 100 mg PO DAILY 03/27/17 21:00 Calcium Carbonate/Vitamin D3 [Calcium 600 + Vit D 400 Tablet] 1 each PO TID Pantoprazole [Protonix] 20 mg PO BID 03/28/17 06:30 Levothyroxine [Synthroid] 50 mcg PO Q48H 03/29/17 06:30 Levothyroxine [Synthroid] 75 mcg PO Q48H Labs on day of discharge: Labs from last 24 hours 03/28/17 03/27/17 03/27/17 05:20 16:40 07:19 WBC 21.4 H RBC 3.88 L Hgb 11.6 L Hct 34.1 L MCV 87.9 MCH 29.9 MCHC 34.0 RDW 20.3 H Plt Count 168 MPV 7.3 L Total Counted 100 Neutrophils % Cancelled Neutrophils % (Manual) 52 L Band Neuts % (Manual) 32 H Lymphocytes % Cancelled Lymphocytes % (Manual) 8 L Monocytes % (Manual) 8 Eosinophils % Cancelled Basophils % Cancelled Neutrophils # Cancelled Lymphocytes # Cancelled Monocytes Cancelled Monocytes # Cancelled Eosinophils # Cancelled Basophils # Cancelled Platelet Estimate Adequate Anisocytosis 20-39% of cells Tear Drop Cells Present Daya Cells Present Sodium 137 135 L Potassium 4.0 3.6 Chloride 107 105 Carbon Dioxide 24 23 BUN 5 L 5 L Creatinine 0.6 0.7 GFR Calculation > 60 > 60 Glucose 79 81 Calcium 7.3 L* 7.1 L* Magnesium 1.7 Total Bilirubin 0.6 Direct Bilirubin 0.1 AST 35 ALT 55 H Alkaline Phosphatase 101 Total Protein 4.8 L D Albumin 2.4 L D Urine Color Pending Urine Appearance Pending Urine pH Pending Ur Specific [place] Pending Urine Protein Pending Urine Ketones Pending Urine Blood Pending Urine Nitrate Pending Urine Bilirubin Pending Urine Urobilinogen Pending Ur Leukocyte Esterase Pending Urine RBC Pending Urine WBC Pending Ur Squamous Epith Cells Pending Urine Bacteria Pending Urine Mucus Pending Urine Glucose Pending Preliminary micro results at discharge 03/27/17 08:00 Blood Culture - Preliminary Blood NO GROWTH TO DATE 03/27/17 07:45 Blood Culture - Preliminary Blood NO GROWTH TO DATE 03/27/17 07:19 Urine Culture - Preliminary Urine,Clean Catch NO GROWTH TO DATE
--- NOTE | 2017-03-28 08:52 | DC SUMMARY: IM Note ---
Discharge Summary: IM/Peds Provider: Date of Admission: 03/27/17 Admitting Provider: ORALIA ZHENG Attending Provider: NABIL HAQ MD Discharging Provider: NABIL HAQ MD Primary Care Provider: Discharge Date: 03/28/17 Consults: 03/27/17 10:12 Nutrition/Dietary Consult [CONS] Routine Reason: Metastatic CA; weight loss; malnutrition. - Diagnosis (1) Nausea & vomiting Status: Acute Qualifiers: Vomiting Intractability: non-intractable (2) Hypokalemia Status: Chronic (3) Hypocalcemia Status: Chronic (4) Weight loss Status: Acute (5) Malnutrition Status: Chronic (6) Breast cancer Status: Chronic Qualifiers: Breast location: upper outer quadrant of breast Estrogen receptor status: positive Patient sex: female Laterality: left Qualified Code(s): C50.412 - Malignant neoplasm of upper-outer quadrant of left female breast; Z17.0 - Estrogen receptor positive status [ER+] (7) Hypoxemia Status: Acute (8) Lymphedema Status: Chronic - Time Spent with Patient Total time spent providing and/or coordinating discharge services: Time with patient DS: Greater than 30 minutes Discharge - Patient/Caregiver Discharge Instructions Activity Level: Ambulation TID. Diet: regular as tolerated. Follow up: JEMMA POND [] - 04/06/17 NABIL HAQ MD [Primary Care Provider] - 7 Days Overall discharge status: patient is progressing back to baseline Print Language: HUNGARIAN Home Medications: Citalopram Hydrobromide [Celexa*] 10 mg PO DAILY #30 clonazePAM [Klonopin*] 0.25 mg PO TID PRN #45 PRN Reason: Anxiety Promethazine HCl 12.5 mg PO Q6H #30 tab Disposition: HOME, SELF-CARE Discharge Summary Data - Medication History Medication History: Home Medications Calcium Carbonate/Vitamin D3 [Calcium 600 + Vit D 400 Tablet] 1 each PO TID Denosumab [Xgeva*] 120 mg SUBCUT [id number] 03/27/17 Docusate Sodium [Colace*] 100 mg PO DAILY 03/27/17 Levothyroxine [Synthroid*] 50 mcg PO EVERY OTHER DAY 03/27/17 Levothyroxine [Synthroid*] 75 mcg PO EVERY OTHER DAY 03/27/17 Omeprazole 20 mg PO BID 03/27/17 Ondansetron Odt [Zofran Odt*] 8 mg PO Q8H 03/27/17 Inpatient Medications 03/27/17 01:23 proMETHazine HCL [Phenergan Inj] 12.5 mg IV Q6H PRN 03/27/17 02:00 Potassium Chloride/Ns [KCl 20 Meq in Ns 1L] 20 meq in 1,000 ml IV CONT 03/27/17 10:15 Citalopram Hydrobromide [CeleXA] 10 mg PO DAILY clonazePAM [KlonoPIN] 0.25 mg PO TID 03/27/17 10:30 Enoxaparin Sodium [Lovenox] 40 mg SUBCUT DAILY 03/27/17 20:30 Docusate Sodium [Colace] 100 mg PO DAILY 03/27/17 21:00 Calcium Carbonate/Vitamin D3 [Calcium 600 + Vit D 400 Tablet] 1 each PO TID Pantoprazole [Protonix] 20 mg PO BID 03/28/17 06:30 Levothyroxine [Synthroid] 50 mcg PO Q48H 03/29/17 06:30 Levothyroxine [Synthroid] 75 mcg PO Q48H Procedures and tests throughout hospitalization: Completed Lab Orders 03/27/17 06:20 HEPATIC PANEL [CHEM] Stat 03/27/17 16:40 BMP [BASIC METABOLIC PANEL] [CHEM] Stat 03/28/17 05:20 BMP [BASIC METABOLIC PANEL] [CHEM] AMDRAW CBC W/ MANUAL DIFFERENTIAL [HEM] Routine HEPATIC PANEL [CHEM] Routine MAGNESIUM [CHEM] Routine Pending Orders 03/27/17 01:23 proMETHazine HCL [Phenergan Inj] 12.5 mg IV Q6H PRN 03/27/17 02:00 Potassium Chloride/Ns [KCl 20 Meq in Ns 1L] 20 meq in 1,000 ml IV CONT 03/27/17 07:19 URINE CULTURE [RM] Urgent urinalysis [UA W/ MICRO -CULTURE IF IND] [URINE] Urgent 03/27/17 08:00 BLOOD CULTURE [BC] Stat 03/27/17 10:15 Citalopram Hydrobromide [CeleXA] 10 mg PO DAILY clonazePAM [KlonoPIN] 0.25 mg PO TID 03/27/17 10:30 Enoxaparin Sodium [Lovenox] 40 mg SUBCUT DAILY 03/27/17 15:00 EKG ONCE 03/27/17 20:30 Docusate Sodium [Colace] 100 mg PO DAILY 03/27/17 21:00 Calcium Carbonate/Vitamin D3 [Calcium 600 + Vit D 400 Tablet] 1 each PO TID Pantoprazole [Protonix] 20 mg PO BID 03/28/17 06:30 Levothyroxine [Synthroid] 50 mcg PO Q48H 03/29/17 06:30 Levothyroxine [Synthroid] 75 mcg PO Q48H Labs on day of discharge: Labs from last 24 hours 03/28/17 03/27/17 03/27/17 05:20 16:40 07:19 WBC 21.4 H RBC 3.88 L Hgb 11.6 L Hct 34.1 L MCV 87.9 MCH 29.9 MCHC 34.0 RDW 20.3 H Plt Count 168 MPV 7.3 L Total Counted 100 Neutrophils % Cancelled Neutrophils % (Manual) 52 L Band Neuts % (Manual) 32 H Lymphocytes % Cancelled Lymphocytes % (Manual) 8 L Monocytes % (Manual) 8 Eosinophils % Cancelled Basophils % Cancelled Neutrophils # Cancelled Lymphocytes # Cancelled Monocytes Cancelled Monocytes # Cancelled Eosinophils # Cancelled Basophils # Cancelled Platelet Estimate Adequate Anisocytosis 20-39% of cells Tear Drop Cells Present [place] Cells Present Sodium 137 135 L Potassium 4.0 3.6 Chloride 107 105 Carbon Dioxide 24 23 BUN 5 L 5 L Creatinine 0.6 0.7 GFR Calculation > 60 > 60 Glucose 79 81 Calcium 7.3 L* 7.1 L* Magnesium 1.7 Total Bilirubin 0.6 Direct Bilirubin 0.1 AST 35 ALT 55 H Alkaline Phosphatase 101 Total Protein 4.8 L D Albumin 2.4 L D Urine Color Pending Urine Appearance Pending Urine pH Pending Ur Specific [place] Pending Urine Protein Pending Urine Ketones Pending Urine Blood Pending Urine Nitrate Pending Urine Bilirubin Pending Urine Urobilinogen Pending Ur Leukocyte Esterase Pending Urine RBC Pending Urine WBC Pending Ur Squamous Epith Cells Pending Urine Bacteria Pending Urine Mucus Pending Urine Glucose Pending Preliminary micro results at discharge 03/27/17 08:00 Blood Culture - Preliminary Blood NO GROWTH TO DATE 03/27/17 07:45 Blood Culture - Preliminary Blood NO GROWTH TO DATE 03/27/17 07:19 Urine Culture - Preliminary Urine,Clean Catch NO GROWTH TO DATE - Impressions Ginger has a h/o metastatic breast cancer with metastases to the liver and stomach. She is s/p procedure to relieve gastric outlet obstruction 7 weeks ago. She has had recurrent, cyclic nausea and vomiting with electrolyte abnormalities. She receives weekly IVF infusions. She had critically low calcium levels which have now been successfully repleted. Her potassium and magnesium levels are now stable. Her nausea and vomiting are improved on phenergan. She has new hypoxemia. Will most likely need to begin home oxygen. Her WBC increased to 21.4 today most likely due to Neupogen last week. Will notify oncology. She hs a F/U appointment with new oncologist, Dr. Aleida Pond onm 04/06/17 with chemotherapy that day. IM: Discharge Physical Exam - I&O/Vital Signs I&O: Intake & Output 03/27/17 03/28/17 03/28/17 21:59 05:59 13:59 Intake Total 360 1041 Output Total 650 0 Balance -290 1041 Weight 54.658 kg Intake: IV 916 Right Subclavian 916 Oral 360 125 Output: Urine 650 0 Other: Urine Appearance Clear Urine Color Yellow Voiding Method Toilet Vital Signs: Last Vital Signs Temp 36.8 C 03/28/17 06:25 Pulse 90 03/28/17 06:25 Resp 16 03/28/17 06:25 BP 130/82 03/28/17 06:25 Pulse Ox 98 03/28/17 06:25 Oxygen Flow Rate 2 Oxygen Delivery Method Nasal Cannula - Constitutional General appearance: Present: cooperative, thin (Cachectic; significant weight loss. Chronically ill-appearing.). Absent: acute distress - Head Head exam: Present: atraumatic, normal inspection, normocephalic - Eye Eye exam: Present: EOMI, PERRL - ENT ENT exam: Present: mucous membranes moist - Respiratory Respiratory exam: Present: clear. Absent: accessory muscle use, rales, respiratory distress - Cardiovascular Cardiovascular exam: Present: RRR. Absent: gallop, rubs, systolic murmur - GI/Abdominal GI/Abdominal exam: Present: normal bowel sounds, soft, other (Incision well- healed.). Absent: distended, guarding, mass, rebound, tenderness - Extremities Exam Extremities exam: Present: edema (LUE lymphedema.). Absent: calf tenderness, Kayce's Sign, tenderness - Back Exam Back exam: Absent: CVA tenderness (L), CVA tenderness (R) - Neurological Exam Neurological exam: Present: alert, oriented X3 - Psychiatric Psychiatric exam: Present: anxious (But improved. ). Absent: depressed - Allied Health Notes Allied health notes reviewed: nursing (Dietary)
[2017-03-28] MEDS: CITALOPRAM HYDROBROMIDE 10 MG TABLET PO SCH (10:05)
[2017-03-28] MEDS: PANTOPRAZOLE 40 MG TABLET PO SCH (10:05)
[2017-03-28] MEDS: DOCUSATE SODIUM 100 MG CAPSULE PO SCH (10:05)
[2017-03-28] MEDS: clonazePAM 0.5 MG TABLET PO SCH (10:06)
[2017-03-28] MEDS: ENOXAPARIN SODIUM 40 MG/0.4 ML SYR SUBCUT SCH (10:08)
[2017-03-28] MEDS: ONDANSETRON HCL 4 MG/2 ML VIAL IV PRN (10:13)
[2017-03-28] MEDS ORDERED: CALCIUM/VIT D 600 MG/400 IU 1 TAB TABLET PO ONE (10:15)
[2017-03-28 11:25] VITALS: BP 117/73; PULSE 103; TEMP 97.9; O2SAT 92
[2017-03-29] MEDS ORDERED: LEVOTHYROXINE 75 MCG TABLET PO SCH ×2 (06:30→09:00)
--- NOTE | 2017-03-29 20:14 | RADIOLOGY REPORT ---
A limited single portable view of the chest is compared with prior examination dated 04/12/2012. Unremarkable right Mediport is noted. Heart and vessels are unremarkable. Post surgical changes are seen in both axillary regions. Stable benign granuloma is seen in the left upper lobe. There are findings raising concern for new 5 mm nodule in the lateral aspect of the right mid lung field. Lungs are otherwise clear. There are apparent lytic changes involving the lateral aspect of the right third rib. No other abnormality is identified. IMPRESSION: 1. Extensive stable chronic changes. 2. Question new lung nodule in the right mid lung field. 3. Question lytic lesions in the right third rib. Further evaluation with CT scanning would be of benefit if clinically appropriate. Findings were personally reviewed with Dr. Guevara on 03/28/2017. [facility]
== END 2017-03-28 09:15 | disposition home or self-care (01) ==
LOC: ER 22:37 → IN 03-27 00:59
PROVIDERS: ADMIT Family Medicine; ATTEND Family Medicine
DX: C50.412 Malignant neoplasm of upper-outer quadrant of left female breast (principal); C78.89 Secondary malignant neoplasm of other digestive organs; E46 Unspecified protein-calorie malnutrition; K31.89 Other diseases of stomach and duodenum; R11.2 Nausea with vomiting, unspecified; E87.6 Hypokalemia; E83.42 Hypomagnesemia; D72.829 Elevated white blood cell count, unspecified; E83.51 Hypocalcemia; R63.4 Abnormal weight loss; K21.9 Gastro-esophageal reflux disease without esophagitis; E03.9 Hypothyroidism, unspecified; Z86.12 Personal history of poliomyelitis; Z79.899 Other long term (current) drug therapy
CPT/HCPCS: 71010; 80048; 80076; 81001; 82040; 82247; 82248; 83735; 84075; 84155; 84450; 84460; 85007; 85027; 87040; 87086; 93005; 96365; 96367; 96372; 96374; 96375; 96376; 99217; 99220; 99284; 99285; G0378; J0610; J1650; J2405; J2550; J3480